=== PATIENT | female | born 1980 | race Caucasian/White ===

== ENCOUNTER 2024-06-21 20:19 | Emergency (ER) | payer MEDICAID ==
[~2024-06-21] VITALS: Ht 162.6 cm; Wt 74.8 kg
[2024-06-21 20:57] VITALS: BP 105/65; TEMP 98.2; O2SAT 99
[2024-06-21] MEDS ORDERED: PRED50TA PO (21:10)
[2024-06-21] MEDS ORDERED: ALBU8.5H8 INH (21:10)
[2024-06-21] MEDS ORDERED: AZIT250T PO (21:10)
[2024-06-21] MEDS ORDERED: predniSONE 20 MG TABLET ONE (21:18)
[2024-06-21] MEDS: predniSONE 50 MG TABLET PO ONE (21:24)
== END 2024-06-21 21:32 | disposition home or self-care (01) ==
LOC: ER 20:23
DX: J40 Bronchitis, not specified as acute or chronic (principal); J32.9 Chronic sinusitis, unspecified
CPT/HCPCS: 99283; J7512